=== PATIENT | female | born 1980 | race Caucasian/White ===

== ENCOUNTER 2018-11-01 04:59 | Emergency (ER) | payer BC ==
[~2018-11-01] VITALS: Ht 162.6 cm; Wt 62.6 kg
[2018-11-01 05:03] VITALS: Ht 162.6 cm; Wt 62.6 kg
[2018-11-01 05:40] VITALS: BP 119/79
== END 2018-11-01 05:40 | disposition home or self-care (01) ==
LOC: ED 04:59
DX: R07.89 Other chest pain (principal)